=== PATIENT | female | born 1970 | race Caucasian/White ===

== ENCOUNTER 2022-07-24 11:04 | Outpatient (CLI) | payer BC, SELFPAY ==
[2022-07-30 04:54] LABS: FSH 5.6 mIU/mL (***)
[2022-08-05 20:02] LABS: Estradiol, Ultrasensitive 177 pg/mL
== END 2022-07-24 11:05 | disposition home or self-care (01) ==
PROVIDERS: Visit Provider Student in an Organized Health Care Education/Training Program
DX: N95.1 Menopausal and female climacteric states (principal)
CPT/HCPCS: 36415; 82670; 83001; 84443